=== PATIENT | male | born 1995 | race Caucasian/White ===

== ENCOUNTER 2018-02-04 16:09 | Emergency (ER) | payer SELFPAY ==
[~2018-02-04] VITALS: Ht 175.3 cm; Wt 59.9 kg
[2018-02-04 16:28] VITALS: BP 141/83; Ht 175.3 cm; Wt 59.9 kg
== END 2018-02-04 17:56 | disposition home or self-care (01) ==
LOC: ED 16:09
DX: S61.212A Laceration without foreign body of right middle finger without damage to nail, initial encounter (principal); W31.9XXA Contact with unspecified machinery, initial encounter; Y93.89 Activity, other specified; Y92.89 Other specified places as the place of occurrence of the external cause; Y99.8 Other external cause status
CPT/HCPCS: 90715; A4570; J2001